=== PATIENT | male | born 1985 | race Caucasian/White ===

== ENCOUNTER 2017-10-25 12:34 | Emergency (ER) | payer SELFPAY ==
[2017-10-25 13:02] VITALS: BP 126/73; PULSE 52; RESP 16; TEMP 98.1; O2SAT 99
--- NOTE | 2017-10-25 13:12 | ED PDOC ---
HPI: Wound Care - HPI Time Seen by Provider: 10/25/17 13:02 Chief Complaint (Nursing): Wound Check Chief Complaint (Provider): Wound Check History Per: Patient Exam Limitations: no limitations Onset/Duration Of Symptoms: Days (x3) Current Symptoms Are (Timing): Better Location Of Injury: Right: Hand Additional Complaint(s): 32 year old male with no significant medical history presents to the ED for wound check. Patient reports he accidentally stapled his right hand at work 3 days ago. He was seen at a hospital in [place], given a topical antibiotic clindamycin, and told to followup at a hospital. Patient reports no draining, improvement in pain and no other problems. PMD: none provided Past Medical History Reviewed: Historical Data, Nursing Documentation, Vital Signs Vital Signs: Last Vital Signs Temp 98.1 F 10/25/17 13:00 Pulse 52 L 10/25/17 13:00 Resp 16 10/25/17 13:00 BP 126/73 10/25/17 13:00 Pulse Ox 99 10/25/17 13:00 - Medical History PMH: No Chronic Diseases - Family History Family History: States: Unknown Family Hx - Allergies Allergies/Adverse Reactions: Allergies Allergy/AdvReac Type Severity Reaction Status Date / Time No Known Allergies Allergy Verified 10/25/17 13:00 Review of Systems ROS Statement: Except As Marked, All Systems Reviewed And Found Negative Musculoskeletal: Positive for: Other (right hand puncture wounds) Physical Exam - Reviewed Nursing Documentation Reviewed: Yes Vital Signs Reviewed: Yes - Physical Exam Appears: Positive for: Non-toxic, No Acute Distress Head Exam: Positive for: ATRAUMATIC Skin: Positive for: Normal Color, Warm, DRY Eye Exam: Positive for: Normal appearance Neck: Positive for: Normal Respiratory: Negative for: Respiratory Distress Extremity: Positive for: Other (Two puncture wounds, scab, no surrounding erythema ) - ECG O2 Sat by Pulse Oximetry: 99 (RA) Pulse Ox Interpretation: Normal Medical Decision Making Medical Decision Making: Time: 1:05 Initial Plan: --wound check Time: 1:09 --Wound is clean and dry. Patient reports improvement in pain and is medically cleared for discharge home. Advised to follow up with PMD. Scribe Attestation: Documented by Anushka Knowles, acting as a scribe forNatalya Blanc PA-C. Provider Scribe Attestation: All medical record entries made by the Scribe were at my direction and personally dictated by me. I have reviewed the chart and agree that the record accurately reflects my personal performance of the history, physical exam, medical decision making, and the department course for this patient. I have also personally directed, reviewed, and agree with the discharge instructions and disposition. Disposition - Clinical Impression Clinical Impression: Encounter for wound re-check - Disposition Referrals: Luis Negrete MD [Staff Provider] - Disposition Time: 01:09 Condition: GOOD Instructions: Wound Care Forms: [employer] (Vietnamese)
== END 2017-10-25 14:33 | disposition home or self-care (01) ==
LOC: H.ER 12:34
DX: Z48.00 Encounter for change or removal of nonsurgical wound dressing (principal)

== ENCOUNTER 2017-11-01 08:45 | Emergency (ER) | payer OTHER ==
[2017-11-01 08:54] VITALS: TEMP 98.2; O2SAT 98
[2017-11-01 08:55] VITALS: BMI 23.6
--- NOTE | 2017-11-01 10:50 | ED PDOC ---
Lower Extremity Pain/Injury Time Seen by Provider: 11/01/17 09:01 Chief Complaint (Nursing): Lower Extremity Problem/Injury Chief Complaint (Provider): right large toe pain History Per: Patient History/Exam Limitations: no limitations Onset/Duration Of Symptoms: Days (x1) Current Symptoms Are (Timing): Still Present Additional Complaint(s): Javier Powers is a 32 year old male, with no significant past medical history, who presents to the emergency department for evaluation of right large toe pain onset since yesterday. Patient [place]ubbed on his right large toe on the stairwell, " he was wearing snickers at the time. Patient admits to some pain thereafter but it persisted. This morning he noticed bruising to toe and pain with walking. Patient denies any head injuries, ankle, knee, hip or back pain. No further medical complaints. PMD: None provided. Past Medical History Reviewed: Historical Data, Nursing Documentation, Vital Signs Vital Signs: Last Vital Signs Temp 98.2 F 11/01/17 08:53 Pulse 59 L 11/01/17 08:53 Resp 16 11/01/17 08:53 BP 120/60 11/01/17 08:53 Pulse Ox 98 11/01/17 08:53 - Medical History PMH: No Chronic Diseases - Surgical History Surgical History: No Surg Hx - Family History Family History: States: Unknown Family Hx - Social History Current smoker - smoking cessation education provided: No Alcohol: None Drugs: Denies - Immunization History Hx Tetanus Toxoid Vaccination: Yes - Home Medications Home Medications: Ambulatory Orders Medication Instructions Recorded Ibuprofen [Motrin Tab] 600 mg PO Q6 PRN #15 tab 11/01/17 - Allergies Allergies/Adverse Reactions: Allergies Allergy/AdvReac Type Severity Reaction Status Date / Time No Known Allergies Allergy Verified 10/25/17 13:00 Review of Systems ROS Statement: Except As Marked, All Systems Reviewed And Found Negative Musculoskeletal: Positive for: Foot Pain (right toe pain) Physical Exam - Reviewed Nursing Documentation Reviewed: Yes Vital Signs Reviewed: Yes - Physical Exam Appears: Positive for: No Acute Distress Head Exam: Positive for: ATRAUMATIC, NORMAL INSPECTION, NORMOCEPHALIC Skin: Positive for: Normal Color, Warm, Dry Eye Exam: Positive for: Normal appearance Neck: Positive for: Painless ROM Extremity: Positive for: Normal ROM (Right knee and ankle nontender and full ROM ), Tenderness (Foot nontender other than hallux which has tenderness, ecchymosis and edema.), Other (No subungual hematoma although some ecchymosis around the nail matrix) Neurologic/Psych: Positive for: Alert, Oriented. Negative for: Motor/Sensory Deficits - ECG O2 Sat by Pulse Oximetry: 98 (RA) Pulse Ox Interpretation: Normal Medical Decision Making Medical Decision Making: Time: 09:01 Initial Impression: Toe fracture Initial Plan: --Foot right 3 views routine [RAD] --Reevaluation -X-ray reveals a lateral distal phalange fracture. 10:45 -Etcher Electrolytic consulted and placed in ERNESTO wrap w/ surgical shoe. Healing and crutch training provided and advised to follow up with outpatient podiatry. Patient stressed restrict adhering to weight bearing to prevent floating fragments. ----- Scribe Attestation: Documented by Logan Soler, acting as a scribe for Abdoulaye Rivera MD. Provider Scribe Attestation: All medical record entries made by the Scribe were at my direction and personally dictated by me. I have reviewed the chart and agree that the record accurately reflects my personal performance of the history, physical exam, medical decision making, and the department course for this patient. I have also personally directed, reviewed, and agree with the discharge instructions and disposition. Disposition - Clinical Impression Clinical Impression: Toe fracture, right - Disposition Referrals: Cirilo Rodriguez DPM [Staff Provider] - Disposition: Routine/Home Disposition Time: 10:45 Condition: STABLE Additional Instructions: Toe touching to heel, use crutches, take motrin for pain as directed, see drop man in office for definitive management. Prescriptions: Ibuprofen [Motrin Tab] 600 mg PO Q6 PRN #15 tab PRN Reason: Pain, Moderate (4-7) Instructions: Toe Fracture (DC)
[2017-11-01 11:17] VITALS: BP 124/66; PULSE 62; RESP 18
--- NOTE | 2017-11-01 12:34 | CP.PCM.CON ---
History of Present Illness - History of Present Illness History of Present Illness: 32 yo male, with with no significant past medical history, seen and evaluated for right toe pain. Patient states that he stubbed his toe yesterday while running up the stairs yesterday after work. He states that he thinks he hit his toe on the top of the step where there was a metal border. Patient notes that the pain is limited to the right big toe only and notes that the pain has not resolved since last night. Denies any other pedal complaints at this time. Denies N/V/F/SOB/CP. Review of Systems - Review of Systems Review of Systems: As per HPI Past Patient History - Past Social History Alcohol: None Drugs: Denies - PSYCHIATRIC Hx Substance Use: No - ANESTHESIA Hx Anesthesia: No Meds Home Medications: Home Medication List Medication Instructions Recorded Confirmed Type Ibuprofen [Motrin Tab] 600 mg PO Q6 PRN #15 tab 11/01/17 Rx Allergies/Adverse Reactions: Allergies Allergy/AdvReac Type Severity Reaction Status Date / Time No Known Allergies Allergy Verified 10/25/17 13:00 Physical Exam - Constitutional Appears: Well, Non-toxic, No Acute Distress - Head Exam Head Exam: ATRAUMATIC, NORMOCEPHALIC - Extremities Exam Additional comments: Vascular: DP/PT 2/4 bilaterally, CTF <3 seconds to all 10 digits. TG WNL bilaterally. Edema noted circumfrentially to right hallux Ortho: Tenderness to palpation of right hallux. MMT 5/5 bilaterally Neuro Gross and protective sensation intact bilaterally Derm: Ecchymosis noted to right hallux proximal nail border and extending proximally to IPJ. Nail plate intact. No open lesions, no signs of infection. - Neurological Exam Neurological exam: Alert, Normal Gait, Oriented x3 - Psychiatric Exam Psychiatric exam: Normal Affect, Normal Mood Results - Vital Signs Recent Vital Signs: Last Vital Signs Temp 98.2 F 11/01/17 08:53 Pulse 62 11/01/17 10:50 Resp 18 11/01/17 10:50 BP 124/66 11/01/17 10:50 Pulse Ox 98 11/01/17 11:05 Assessment & Plan - Assessment and Plan (Free Text) Assessment: 32 yo male, with with no significant past medical history, seen and evaluated for right hallux fracture of distal phalanx Plan: Patient was seen and evaluated in ED with all questions and concerns addressed Patient was discussed in detail with Dr. Rodriguez Right x-rays were taken and reviewed; Area of radiolucency consistent with a fracture noted to lateral aspect of right distal phalanx 2 inch ERNESTO applied to right hallux Dispensed surgical shoe to patient Partial weightwear to right heel Dispensed crutches to patient and instructed him on their proper use F/U in Dr. Rodriguez's office, patient instructed to call office for appointment - Date & Time Date: 11/01/17 Time: 15:47
--- NOTE | 2017-11-01 12:50 | RAD ---
Date of service: 11/01/2017 PROCEDURE: Right Foot Radiographs. HISTORY: R hallux injury COMPARISON: None. FINDINGS: BONES: Normal. No fractureFracture through the distal phalanx. Manoj remarked. JOINTS: Normal. SOFT TISSUES: Normal. OTHER FINDINGS: None. IMPRESSION: Acute fracture distal phalanx right 1st digit. Concordant results with the preliminary interpretation rendered by the emergency department physician procedure.
== END 2017-11-01 10:53 | disposition home or self-care (01) ==
LOC: H.ER 08:45
DX: S92.411A Displaced fracture of proximal phalanx of right great toe, initial encounter for closed fracture (principal); W22.8XXA Striking against or struck by other objects, initial encounter; Y92.89 Other specified places as the place of occurrence of the external cause